=== PATIENT | female | born 1945 | race Caucasian/White ===

== ENCOUNTER → 2023-05-05 10:45 | Outpatient (REF) | payer MEDICARE, BC, SELFPAY ==
[2023-05-05 12:32] LABS: Blood Urea Nitrogen 20 mg/dl (7-17); Calcium 9.1 mg/dl (8.4-10.2); Carbon Dioxide 24 mmol/L (22-30); Chloride 105 mmol/L (98-107); Glucose 114 mg/dl (70-99); Potassium 4.6 mmol/L (3.5-5.1); Sodium 139 mmol/L (135-145); eGFR > 60.00
[2023-05-05 13:12] LABS: Vitamin B12 774 pg/ml (239-931)
== END ==
LOC: HWLAB 10:45
PROVIDERS: ATTENDING PHYSICIAN Family Medicine
DX: E53.8 Deficiency of other specified B group vitamins (principal); I10 Essential (primary) hypertension
CPT/HCPCS: 36415; 80048; 82607

== ENCOUNTER → 2023-06-16 12:56 | Outpatient (REF) | payer MEDICARE, BC, SELFPAY | LOC: HWRAD 12:56 | PROVIDERS: ATTENDING PHYSICIAN Internal Medicine Endocrinology, Diabetes & Metabolism; FAMILY PHYSICIAN Family Medicine | DX: M81.0 Age-related osteoporosis without current pathological fracture (principal); E05.90 Thyrotoxicosis, unspecified without thyrotoxic crisis or storm | CPT/HCPCS: 76536; 77080 ==

== ENCOUNTER → 2023-08-30 10:03 | Outpatient (REF) | payer BC, MEDICARE, SELFPAY ==
[2023-08-30 12:08] LABS: % Basophils 0.5 % (0-2); % Immature Granulocytes 0.3 % (0-0.5); % Lymphocytes 38.8 % (20.5-51.1); % Monocytes 8.4 % (1.7-9.3); Absolute Eosinophils 0.2 10^3/uL (0-0.7); Absolute Monocytes 0.6 10^3/uL (0.1-0.6); Absolute Neutrophils 3.8 10^3/uL (1.4-6.5); Hematocrit 37.3 % (37.0-47.0); Hemoglobin 12.7 g/dL (12.0-16.0); Mean Corpuscular Hgb 33.5 pg (27.0-31.0); Mean Corpuscular Volume 98.4 fL (81.0-99.0); Mean Platelet Volume 9.9 fL (7.4-10.4); Nucleated Red Blood Cells % 0 %; Platelet Count 338 10^3/uL (130-400); Red Blood Cell Count 3.79 10^6/uL (4.20-5.40); Red Cell Dist. Width 12.7 % (11.5-14.5); White Blood Cell Count 7.7 10^3/uL (4.8-10.8)
[2023-08-30 12:32] LABS: ALT (SGPT) 16 U/L (0-35); AST (SGOT) 18 U/L (14-36); Albumin 4.2 g/dl (3.5-5.0); Alkaline Phosphatase 35 U/L (38-126); Blood Urea Nitrogen 24 mg/dl (7-17); Calcium 9.8 mg/dl (8.4-10.2); Carbon Dioxide 26 mmol/L (22-30); Chloride 106 mmol/L (98-107); Glucose 113 mg/dl (70-99); Potassium 4.6 mmol/L (3.5-5.1); Sodium 139 mmol/L (135-145); Total Bilirubin 0.6 mg/dl (0.2-1.3); Total Protein 6.8 g/dl (6.3-8.2); eGFR > 60.00
[2023-08-30 12:50] LABS: Vitamin D, 25-OH*** 62.4 ng/mL (30-80)
[2023-08-30 13:02] LABS: TSH Reflex To Free T4 0.16 uIU/ml (0.47-4.68)
[2023-08-30 13:22] LABS: Vitamin B12 800 pg/ml (239-931)
[2023-08-30 13:27] LABS: Free T4 1.33 ng/dl (0.78-2.19)
== END ==
LOC: HWRAD 10:03
PROVIDERS: ATTENDING PHYSICIAN Registered Nurse
DX: R53.83 Other fatigue (principal); E05.90 Thyrotoxicosis, unspecified without thyrotoxic crisis or storm; E04.1 Nontoxic single thyroid nodule; E53.8 Deficiency of other specified B group vitamins; I10 Essential (primary) hypertension; Z79.899 Other long term (current) drug therapy
CPT/HCPCS: 36415; 80053; 82306; 82607; 84439; 84443; 85025

== ENCOUNTER → 2023-09-20 13:21 | Outpatient (REF) | payer MEDICARE, BC, SELFPAY | LOC: HWRAD 13:21 | PROVIDERS: ATTENDING PHYSICIAN Registered Nurse | DX: E05.90 Thyrotoxicosis, unspecified without thyrotoxic crisis or storm (principal); E04.1 Nontoxic single thyroid nodule | CPT/HCPCS: 76536 ==

== ENCOUNTER → 2023-10-26 08:27 | Outpatient (REF) | payer MEDICARE, BC, SELFPAY ==
[2023-10-26 09:43] LABS: % Basophils 1.3 % (0-2); % Immature Granulocytes 0.3 % (0-0.5); % Lymphocytes 44.6 % (20.5-51.1); % Monocytes 11.4 % (1.7-9.3); % Neutrophils 39.4 % (42.2-75.2); Absolute Basophils 0.1 10^3/uL (0-0.2); Absolute Eosinophils 0.2 10^3/uL (0-0.7); Absolute Lymphocytes 2.7 10^3/uL (1.2-3.4); Absolute Monocytes 0.7 10^3/uL (0.1-0.6); Absolute Neutrophils 2.4 10^3/uL (1.4-6.5); Hematocrit 36.4 % (37.0-47.0); Hemoglobin 12.2 g/dL (12.0-16.0); Mean Corp Hgb Conc. 33.5 g/dL (33.0-37.0); Mean Corpuscular Hgb 33.5 pg (27.0-31.0); Nucleated Red Blood Cells % 0.3 %; Platelet Count 347 10^3/uL (130-400); Red Blood Cell Count 3.64 10^6/uL (4.20-5.40); Red Cell Dist. Width 13.7 % (11.5-14.5)
[2023-10-26 10:36] LABS: Blood Urea Nitrogen 21 mg/dl (7-17); Calcium 9.2 mg/dl (8.4-10.2); Carbon Dioxide 24 mmol/L (22-30); Chloride 107 mmol/L (98-107); Glucose 99 mg/dl (70-99); Potassium 4.7 mmol/L (3.5-5.1); Sodium 138 mmol/L (135-145); eGFR > 60.00
[2023-10-26 11:13] LABS: Vitamin B12 755 pg/ml (239-931)
== END ==
LOC: HWLAB 08:27
PROVIDERS: ATTENDING PHYSICIAN Family Medicine
DX: E53.8 Deficiency of other specified B group vitamins (principal); I10 Essential (primary) hypertension; Z00.00 Encounter for general adult medical examination without abnormal findings; Z79.899 Other long term (current) drug therapy
CPT/HCPCS: 36415; 80048; 82607; 85025

== ENCOUNTER → 2024-01-10 07:56 | Outpatient (REF) | payer MEDICARE, BC, SELFPAY ==
[2024-01-10 09:38] LABS: % Eosinophils 3.8 % (0-6); % Immature Granulocytes 0.2 % (0-0.5); Absolute Basophils 0.1 10^3/uL (0-0.2); Absolute Eosinophils 0.2 10^3/uL (0-0.7); Absolute Lymphocytes 2.3 10^3/uL (1.2-3.4); Absolute Monocytes 0.6 10^3/uL (0.1-0.6); Absolute Neutrophils 2.5 10^3/uL (1.4-6.5); Hematocrit 37.4 % (37.0-47.0); Hemoglobin 12.8 g/dL (12.0-16.0); Mean Corp Hgb Conc. 34.2 g/dL (33.0-37.0); Mean Corpuscular Hgb 34.3 pg (27.0-31.0); Mean Corpuscular Volume 100.3 fL (81.0-99.0); Nucleated Red Blood Cells % 0 %; Platelet Count 339 10^3/uL (130-400); Red Blood Cell Count 3.73 10^6/uL (4.20-5.40); White Blood Cell Count 5.7 10^3/uL (4.8-10.8)
[2024-01-10 10:12] LABS: Urine Albumin Negative (Neg - Trace); Urine Bilirubin Negative (Negative); Urine Character Clear (Clear); Urine Color Yellow; Urine Glucose Negative (Negative); Urine Ketone Negative (Negative); Urine Leukocyte Trace (Negative); Urine Nitrite Positive (Negative); Urine Occult Blood Negative (Negative); Urine Specific Gravity 1.015 (<1.030); Urine Urobilinogen Negative (Neg - 1+)
[2024-01-10 10:14] LABS: ALT (SGPT) 15 U/L (0-35); AST (SGOT) 18 U/L (14-36); Albumin 4.2 g/dl (3.5-5.0); Alkaline Phosphatase 45 U/L (38-126); Blood Urea Nitrogen 24 mg/dl (7-17); Calcium 8.9 mg/dl (8.4-10.2); Carbon Dioxide 23 mmol/L (22-30); Chloride 108 mmol/L (98-107); Glucose 101 mg/dl (70-99); Potassium 4.2 mmol/L (3.5-5.1); Sodium 143 mmol/L (135-145); Total Bilirubin 0.7 mg/dl (0.2-1.3); Total Protein 6.9 g/dl (6.3-8.2); eGFR > 60.00
[2024-01-10 10:35] LABS: Urine Mucus Few; Urine Squamous Cell 21-25 /LPF (Few)
[2024-01-10 10:36] LABS: Urine Bacteria Many (Negative); Urine Red Blood Cell 0-2 /HPF (0-2); Urine White Cell 16-20 /HPF (0-5)
[2024-01-10 10:45] LABS: TSH Reflex To Free T4 0.37 uIU/ml (0.47-4.68)
[2024-01-10 11:11] LABS: Free T4 1.18 ng/dl (0.78-2.19)
[2024-01-10 11:21] LABS: Folate 6.3 ng/ml (2.76-20)
[2024-01-10 15:19] LABS: Syphilis/T. pallidum Ab Reflex Negative (Negative)
== END ==
LOC: HWLAB 07:56
PROVIDERS: ATTENDING PHYSICIAN Family Medicine
DX: R41.3 Other amnesia (principal)
CPT/HCPCS: 36415; 80053; 81003; 81015; 82746; 84439; 84443; 85025; 86780; 87077; 87086; 87186

== ENCOUNTER → 2024-01-11 14:20 | Outpatient (REF) | payer MEDICARE, BC, SELFPAY | LOC: HWRAD 14:20 | PROVIDERS: ATTENDING PHYSICIAN Family Medicine | DX: R41.3 Other amnesia (principal) | CPT/HCPCS: 70450 ==

== ENCOUNTER → 2024-02-16 08:44 | Day surgery (SDC) | payer MEDICARE, BC, SELFPAY ==
[2024-02-16 10:46] LABS: Hemoglobin 13.1 g/dL (12.0-16.0); Mean Corp Hgb Conc. 32.8 g/dL (33.0-37.0); Mean Corpuscular Hgb 34.1 pg (27.0-31.0); Mean Corpuscular Volume 104.2 fL (81.0-99.0); Mean Platelet Volume 10.3 fL (7.4-10.4); Platelet Count 321 10^3/uL (130-400); Red Blood Cell Count 3.84 10^6/uL (4.20-5.40); Red Cell Dist. Width 13.7 % (11.5-14.5); White Blood Cell Count 6.1 10^3/uL (4.8-10.8)
[2024-02-16 12:00] LABS: Blood Urea Nitrogen 21 mg/dl (7-17); Calcium 8.8 mg/dl (8.4-10.2); Carbon Dioxide 25 mmol/L (22-30); Chloride 105 mmol/L (98-107); Glucose 97 mg/dl (70-99); Potassium 4.5 mmol/L (3.5-5.1); Sodium 141 mmol/L (135-145); eGFR > 60.00
== END ==
LOC: SDSPAT 08:44
PROVIDERS: ATTENDING PHYSICIAN Orthopaedic Surgery Hand Surgery; FAMILY PHYSICIAN Family Medicine
DX: Z01.810 Encounter for preprocedural cardiovascular examination (principal); Z01.812 Encounter for preprocedural laboratory examination; R94.31 Abnormal electrocardiogram [ECG] [EKG]
CPT/HCPCS: 93005; 36415; 80048; 85027

== ENCOUNTER 2024-02-21 06:56 | Day surgery (SDC) | payer MEDICARE, BC, SELFPAY ==
[2024-02-16 10:12] VITALS: BMI 22.7
[2024-02-16 13:27] VITALS: BMI 22.7
[2024-02-21] VITALS (13 sets, daily range): BP systolic 132–154; BP diastolic 65–85; BMI 22.7
[2024-02-21] MEDS: CELEBREX 200 MG PO (09:40)
[2024-02-21] MEDS: TYLENOL 1000 MG PO (09:40)
[2024-02-21] MEDS: DILAUDID 0.5 MG IV (13:37)
== END 2024-02-21 15:32 | disposition home or self-care (01) ==
LOC: SDS 06:56
PROVIDERS: ATTENDING PHYSICIAN Orthopaedic Surgery Hand Surgery; FAMILY PHYSICIAN Family Medicine
DX: M66.242 Spontaneous rupture of extensor tendons, left hand (principal); T84.84XA Pain due to internal orthopedic prosthetic devices, implants and grafts, initial encounter; Y83.9 Surgical procedure, unspecified as the cause of abnormal reaction of the patient, or of later complication, without mention of misadventure at the time of the procedure
CPT/HCPCS: 26492; C1713

== ENCOUNTER 2024-03-05 11:46 | Outpatient (RCR) | payer MEDICARE, BC, SELFPAY | END 2024-03-05 23:59 | disposition home or self-care (01) | LOC: ROT 11:46 | PROVIDERS: ATTENDING PHYSICIAN Orthopaedic Surgery Hand Surgery; FAMILY PHYSICIAN Family Medicine | DX: Z47.89 Encounter for other orthopedic aftercare (principal); M66.242 Spontaneous rupture of extensor tendons, left hand | CPT/HCPCS: 97535; 97760 ==

== ENCOUNTER → 2024-04-24 08:59 | Outpatient (REF) | payer MEDICARE, BC, SELFPAY ==
[2024-04-24 12:42] LABS: ALT (SGPT) 20 U/L (0-35); AST (SGOT) 20 U/L (14-36); Albumin 4.1 g/dl (3.5-5.0); Alkaline Phosphatase 55 U/L (38-126); Blood Urea Nitrogen 23 mg/dl (7-17); Calcium 8.8 mg/dl (8.4-10.2); Carbon Dioxide 23 mmol/L (22-30); Chloride 108 mmol/L (98-107); Glucose 103 mg/dl (70-99); Potassium 4.5 mmol/L (3.5-5.1); Sodium 139 mmol/L (135-145); Total Bilirubin 0.6 mg/dl (0.2-1.3); Total Protein 6.7 g/dl (6.3-8.2); eGFR > 60.00
[2024-04-24 12:50] LABS: % Eosinophils 3.7 % (0-6); % Immature Granulocytes 0.2 % (0-0.5); % Lymphocytes 39.8 % (20.5-51.1); % Monocytes 11.7 % (1.7-9.3); % Neutrophils 43.6 % (42.2-75.2); Absolute Basophils 0.1 10^3/uL (0-0.2); Absolute Eosinophils 0.2 10^3/uL (0-0.7); Absolute Lymphocytes 2.4 10^3/uL (1.2-3.4); Absolute Monocytes 0.7 10^3/uL (0.1-0.6); Absolute Neutrophils 2.6 10^3/uL (1.4-6.5); Hematocrit 36.9 % (37.0-47.0); Hemoglobin 12.1 g/dL (12.0-16.0); Mean Corp Hgb Conc. 32.8 g/dL (33.0-37.0); Mean Corpuscular Hgb 33.7 pg (27.0-31.0); Mean Corpuscular Volume 102.8 fL (81.0-99.0); Mean Platelet Volume 10.3 fL (7.4-10.4); Nucleated Red Blood Cells % 0 %; Platelet Count 342 10^3/uL (130-400); Red Blood Cell Count 3.59 10^6/uL (4.20-5.40); Red Cell Dist. Width 13.6 % (11.5-14.5); White Blood Cell Count 5.9 10^3/uL (4.8-10.8)
[2024-04-24 15:09] LABS: TSH 0.33 uIU/ml (0.47-4.68)
[2024-04-24 15:28] LABS: Vitamin B12 468 pg/ml (239-931)
== END ==
LOC: HWLAB 08:59
PROVIDERS: ATTENDING PHYSICIAN Internal Medicine Endocrinology, Diabetes & Metabolism; FAMILY PHYSICIAN Family Medicine
DX: I10 Essential (primary) hypertension (principal); D53.9 Nutritional anemia, unspecified; E53.8 Deficiency of other specified B group vitamins; M81.0 Age-related osteoporosis without current pathological fracture
CPT/HCPCS: 36415; 80053; 82607; 84443; 85025

== ENCOUNTER 2024-04-27 10:00 | Outpatient (RCR) | payer MEDICARE, BC, SELFPAY | END 2024-04-27 23:59 | disposition home or self-care (01) | LOC: ROT 10:00 | PROVIDERS: ATTENDING PHYSICIAN Orthopaedic Surgery Hand Surgery; FAMILY PHYSICIAN Family Medicine | DX: Z47.89 Encounter for other orthopedic aftercare (principal); M66.242 Spontaneous rupture of extensor tendons, left hand | CPT/HCPCS: 97018; 97110; 97166; 97535 ==

== ENCOUNTER 2024-05-21 08:59 | Outpatient (RCR) | payer MEDICARE, BC, SELFPAY | END 2024-05-21 23:59 | disposition home or self-care (01) | LOC: ROT 08:59 | PROVIDERS: ATTENDING PHYSICIAN Orthopaedic Surgery Hand Surgery; FAMILY PHYSICIAN Family Medicine | DX: Z47.89 Encounter for other orthopedic aftercare (principal); M66.242 Spontaneous rupture of extensor tendons, left hand | CPT/HCPCS: 97018; 97110 ==

== ENCOUNTER → 2024-06-06 09:26 | Outpatient (REF) | payer MEDICARE, BC, SELFPAY | LOC: HWWDC 09:26 | PROVIDERS: ATTENDING PHYSICIAN Family Medicine | DX: Z12.31 Encounter for screening mammogram for malignant neoplasm of breast (principal) | CPT/HCPCS: 77063; 77067 ==

== ENCOUNTER 2024-06-07 12:00 | Outpatient (RCR) | payer MEDICARE, BC, SELFPAY | END 2024-06-07 23:59 | disposition home or self-care (01) | LOC: ROT 12:00 | PROVIDERS: ATTENDING PHYSICIAN Orthopaedic Surgery Hand Surgery; FAMILY PHYSICIAN Family Medicine | DX: Z47.89 Encounter for other orthopedic aftercare (principal); M66.242 Spontaneous rupture of extensor tendons, left hand | CPT/HCPCS: 97018; 97110; 97140 ==

== ENCOUNTER 2024-06-28 10:16 | Outpatient (RCR) | payer MEDICARE, BC, SELFPAY | END 2024-07-06 07:34 | disposition home or self-care (01) | LOC: ROT 10:16 | PROVIDERS: ATTENDING PHYSICIAN Orthopaedic Surgery Hand Surgery; FAMILY PHYSICIAN Family Medicine | DX: Z47.89 Encounter for other orthopedic aftercare (principal); M66.242 Spontaneous rupture of extensor tendons, left hand | CPT/HCPCS: 97018; 97110 ==

== ENCOUNTER → 2024-11-13 09:31 | Outpatient (REF) | payer MEDICARE, BC, SELFPAY ==
[2024-11-13 11:19] LABS: Hematocrit 34.9 % (37.0-47.0); Hemoglobin 11.6 g/dL (12.0-16.0); Mean Corp Hgb Conc. 33.2 g/dL (33.0-37.0); Mean Corpuscular Volume 100.9 fL (81.0-99.0); Nucleated Red Blood Cells % 0 %; Platelet Count 314 10^3/uL (130-400); Red Cell Dist. Width 13.8 % (11.5-14.5)
[2024-11-13 11:53] LABS: Blood Urea Nitrogen 21 mg/dl (7-17); Calcium 9.0 mg/dl (8.4-10.2); Carbon Dioxide 25 mmol/L (22-30); Chloride 109 mmol/L (98-107); Glucose 91 mg/dl (70-99); Potassium 4.4 mmol/L (3.5-5.1); Sodium 141 mmol/L (135-145); eGFR > 60.00
[2024-11-13 12:23] LABS: TSH 0.36 uIU/ml (0.47-4.68)
[2024-11-13 12:42] LABS: Vitamin B12 763 pg/ml (239-931)
== END ==
LOC: HWLAB 09:31
PROVIDERS: ATTENDING PHYSICIAN Family Medicine
DX: E05.90 Thyrotoxicosis, unspecified without thyrotoxic crisis or storm (principal); D53.9 Nutritional anemia, unspecified; E53.8 Deficiency of other specified B group vitamins; I10 Essential (primary) hypertension
CPT/HCPCS: 36415; 80048; 82607; 84439; 84443; 85025

== ENCOUNTER → 2024-11-19 14:20 | Outpatient (REF) | payer MEDICARE, BC, SELFPAY | LOC: HWRAD 14:20 | PROVIDERS: ATTENDING PHYSICIAN Internal Medicine Endocrinology, Diabetes & Metabolism; FAMILY PHYSICIAN Family Medicine | DX: E04.2 Nontoxic multinodular goiter (principal) | CPT/HCPCS: 76536 ==

== ENCOUNTER → 2024-11-23 11:15 | Outpatient (REF) | payer MEDICARE, BC, SELFPAY | LOC: HWRAD 11:15 | PROVIDERS: ATTENDING PHYSICIAN Family Medicine | DX: M25.561 Pain in right knee (principal); M25.562 Pain in left knee; M54.50 Low back pain, unspecified | CPT/HCPCS: 72110; 73564; 73565 ==

== ENCOUNTER 2024-12-24 07:38 | Outpatient (RCR) | payer MEDICARE, BC, SELFPAY | END 2024-12-24 23:59 | disposition home or self-care (01) | LOC: RPT 07:38 | PROVIDERS: ATTENDING PHYSICIAN Family Medicine | DX: M25.562 Pain in left knee (principal); M25.561 Pain in right knee; Z73.6 Limitation of activities due to disability; M17.0 Bilateral primary osteoarthritis of knee; R26.89 Other abnormalities of gait and mobility; M62.81 Muscle weakness (generalized) | CPT/HCPCS: 97110; 97162 ==

== ENCOUNTER 2025-01-25 08:09 | Outpatient (RCR) | payer MEDICARE, BC, SELFPAY | END 2025-01-25 23:59 | disposition home or self-care (01) | LOC: RPT 08:09 | PROVIDERS: ATTENDING PHYSICIAN Family Medicine | DX: M25.562 Pain in left knee (principal); M25.561 Pain in right knee; Z73.6 Limitation of activities due to disability; M17.0 Bilateral primary osteoarthritis of knee; R26.89 Other abnormalities of gait and mobility; M62.81 Muscle weakness (generalized) | CPT/HCPCS: 97110; 97530 ==

== ENCOUNTER 2025-02-18 09:11 | Outpatient (RCR) | payer MEDICARE, OTHER, SELFPAY | END 2025-02-18 23:59 | disposition home or self-care (01) | LOC: RPT 09:11 | PROVIDERS: ATTENDING PHYSICIAN Family Medicine | DX: M25.562 Pain in left knee (principal); M25.561 Pain in right knee; Z73.6 Limitation of activities due to disability; M17.0 Bilateral primary osteoarthritis of knee; R26.89 Other abnormalities of gait and mobility; M62.81 Muscle weakness (generalized) | CPT/HCPCS: 97110; 97140; 97530 ==

== ENCOUNTER → 2025-02-27 08:46 | Outpatient (REF) | payer MEDICARE, OTHER, SELFPAY | LOC: RAD 08:46 | PROVIDERS: ATTENDING PHYSICIAN Registered Nurse; FAMILY PHYSICIAN Family Medicine | DX: M54.50 Low back pain, unspecified (principal); M25.552 Pain in left hip | CPT/HCPCS: 72110; 73502 ==

== ENCOUNTER 2025-03-18 09:16 | Outpatient (RCR) | payer MEDICARE, OTHER, SELFPAY | END 2025-03-27 23:59 | disposition home or self-care (01) | LOC: RPT 09:16 | PROVIDERS: ATTENDING PHYSICIAN Family Medicine | DX: M25.562 Pain in left knee (principal); M25.561 Pain in right knee; Z73.6 Limitation of activities due to disability; M17.0 Bilateral primary osteoarthritis of knee; R26.89 Other abnormalities of gait and mobility; M62.81 Muscle weakness (generalized) | CPT/HCPCS: 97110; 97530 ==